=== PATIENT | male | born 1995 | race African-American/Black ===

== ENCOUNTER 2016-10-07 21:46 | Emergency (ER) | payer OTHER ==
[~2016-10-07] VITALS: Ht 185.4 cm; Wt 68.0 kg
[2016-10-07 22:02] VITALS: BP 117/77
--- NOTE | 2016-10-07 23:21 | NUR ---
TO ER OF 2
--- NOTE | 2016-10-07 23:28 | NUR ---
Patient being evaluated by physician at [facility].
[2016-10-07] MEDS ORDERED: IBUPROFEN 800 MG TAB PO ONE (23:30)
[2016-10-07] MEDS ORDERED: oxyCODONE/APAP 5/325 MG 1 TAB TAB PO ONE (23:30)
--- NOTE | 2016-10-07 23:33 | NUR ---
Blaze hanna in [facility] - 10/07/16 at 2340 by [facility] Patient being evaluated by physician at [facility].
[2016-10-08] MEDS ORDERED: LIDOCAINE 1% 500 MG/50 ML VIAL INJ SCH (00:05)
[2016-10-08] MEDS ORDERED: LIDOCAINE 1% ED 50 ML ONE (00:22)
[2016-10-08 00:40] VITALS: BP 107/68
--- NOTE | 2016-10-08 00:40 | NUR ---
Patient discharged with v/s stable. Written and verbal after care instructions given and explained. Patient verbalized understanding. Ambulatory with steady gait. All questions addressed prior to discharge. Advised to follow up with PMD.
[2016-10-08] MEDS ORDERED: BACITRACIN OINT 500 UNITS/GM PKT TP ONE (00:44)
== END 2016-10-08 00:40 | disposition home or self-care (01) ==
LOC: MED 21:46
DX: S61.411A Laceration without foreign body of right hand, initial encounter (principal); W22.01XA Walked into wall, initial encounter; Y93.89 Activity, other specified; Y92.89 Other specified places as the place of occurrence of the external cause; Y99.8 Other external cause status
CPT/HCPCS: 12001; 73130; 99284; J2001

== ENCOUNTER 2016-10-12 08:40 | Emergency (ER) | payer SELFPAY ==
[~2016-10-12] VITALS: Ht 185.4 cm; Wt 63.5 kg
[2016-10-12 08:44] VITALS: BP 114/48
--- NOTE | 2016-10-12 08:44 | NUR ---
PT TAKEN TO BED 6
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
--- NOTE | 2016-10-12 08:45 | NUR ---
Patient being evaluated by DR STARK at bedside.
[2016-10-12] MEDS ORDERED: LEVOFLOXACIN 500 MG/D5W PREMIX 100 ML IV ONE (08:55)
[2016-10-12] MEDS ORDERED: NACL 0.9% 1,000 ML IV SCH (08:56)
[2016-10-12] MEDS ORDERED: ONDANSETRON 4 MG/2 ML VIAL IVP ONE (09:00)
[2016-10-12] MEDS ORDERED: cefTRIAXone 1,000 MG VIAL ONE (09:10)
[2016-10-12 09:13] LABS: BASOPHILS % (AUTO) 0.6 % (0.0-2.0); EOSINOPHILS # (AUTO) 0.1 K/uL (0-0.4); HEMATOCRIT 43.2 % (36-52); HEMOGLOBIN 14.2 g/dL (12.0-18.0); LYMPHOCYTES # (AUTO) 1.3 K/uL (2.0-11.5); LYMPHOCYTES % (AUTO) 18.7 % (20.5-51.1); MEAN CORPUSCULAR HEMOGLOBIN 29 pg (27-31); MEAN CORPUSCULAR HGB CONC 33 g/dL (33-37); MEAN CORPUSCULAR VOLUME 89 fL (80-94); MONOCYTES # (AUTO) 0.4 K/uL (0.8-1.0); MONOCYTES % (AUTO) 5.4 % (1.7-9.3); NEUTROPHILS # (AUTO) 4.9 K/uL (1.8-7.7); NEUTROPHILS % (AUTO) 74.3 % (42.2-75.2); PLATELET COUNT (AUTO) 206 K/uL (140-450); RED BLOOD CELL COUNT(AUTO) 4.88 MIL/uL (4.20-6.10); RED CELL DISTRIBUTION WIDTH 12.6 % (11.6-13.7); WHITE BLOOD COUNT (AUTO) 6.7 K/uL (4.5-11.0)
--- NOTE | 2016-10-12 09:15 | NUR ---
LAB AT BEDSIDE
--- NOTE | 2016-10-12 09:15 | NUR ---
INSERTED IV [id number] LAC; PT TOLERATED PROCEDURE WELL. ADMINISTERED IVF & MEDS ORDER.
[2016-10-12 09:33] LABS: ANION GAP 11.5 (8-16); CARBON DIOXIDE 29.1 mmol/L (21-32); POTASSIUM 3.6 mmol/L (3.5-5.1)
[2016-10-12] MEDS ORDERED: KETOROLAC 30 MG/ML VIAL IVP ONE (09:55)
--- NOTE | 2016-10-12 10:34 | NUR ---
WOUND C/S DONE & SENT SPECIMEN TO LAB. WOUND CARE DONE BY ENRIQUETA SOARES. PT TOLERATED PROCEDURE WELL
--- NOTE | 2016-10-12 11:00 | NUR ---
Blaze hanna in ED - 10/12/16 at 1152 by [facility] WOUND CARE DONE BY ENRIQUETA KAT PT TOLERATED PROCEDURE WELL
[2016-10-12] MEDS ORDERED: NEOMYCIN/POLYMYXIN/BACITRACIN 0.9 GM/1 PKT TP ONE (11:11)
--- NOTE | 2016-10-12 11:34 | NUR ---
IV removed, catheter intact and site benign. Applied folded 4x4 gauze and tape to stop bleeding.
[2016-10-12 11:35] VITALS: BP 118/71
--- NOTE | 2016-10-12 11:35 | NUR ---
Patient discharged with v/s stable. Written and verbal after care instructions given and explained. Patient alert, oriented and verbalized understanding of instructions. Ambulatory with steady gait. All questions addressed prior to discharge. ID band removed. Patient advised to follow up with PMD. Rx of LEVAQUIN & KEFLEX given. Patient educated on indication of medication including possible reaction and side effects. Opportunity to ask questions provided and answered.
[2016-10-12] MEDS ORDERED: BACITRACIN OINT 500 UNITS/GM PKT TP ONE (11:38)
== END 2016-10-12 11:35 | disposition home or self-care (01) ==
LOC: MED 08:40
DX: L03.113 Cellulitis of right upper limb (principal); R11.10 Vomiting, unspecified
CPT/HCPCS: 36415; 80048; 85025; 87070; 87075; 87186; 87205; 96365; 96367; 96375; 99284; J0696; J1885; J1956; J2405; J7030; J7060

== ENCOUNTER 2016-10-15 08:40 | Emergency (ER) | payer MEDICAID ==
[~2016-10-15] VITALS: Ht 185.4 cm; Wt 59.1 kg
[2016-10-15 08:42] VITALS: BP 106/65
--- NOTE | 2016-10-15 08:49 | NUR ---
Patent ambulated to bed 5. RN evaluating patient at bedside.
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
--- NOTE | 2016-10-15 08:59 | NUR ---
Dr. Duran evaluating patient at bedside. Addendum: [facility] 09[facility] BY DR DURAN. PT TOLERATED PROCEDURE WELL.
[2016-10-15] MEDS ORDERED: VANCOMYCIN 1,000 MG in DEXTROSE 5% 250 ML IV ONE (09:00)
--- NOTE | 2016-10-15 09:00 | NUR ---
inserted iv cath 20g LAC .PT TOLERATED PROCEDURE WELL. IV PATENT & INTACT. ADMINISTERED MED ORDER. PAIN R HAND 06/29. Addendum: 10/15/16 at 1050 by [email or web address] WOUND CARE DONE. PT TPLERATED PROCEDURE WELL.
[2016-10-15] MEDS ORDERED: VANCOMYCIN 1,000 MG VIAL ONE (09:10)
--- NOTE | 2016-10-15 09:37 | NUR ---
Dr. Roach reevaluating patient at bedside.
--- NOTE | 2016-10-15 09:40 | NUR ---
Patient appears to be resting comfortably in bed. Vital Signs within normal limits. Respirations even and unlabored.WILL CONTINUE TO MONITOR.
--- NOTE | 2016-10-15 10:10 | NUR ---
Note cadesimeon in EDM - 10/15/16 at 1052 by [facility] Patient discharged with v/s stable. Written and verbal after care instructions given and explained. Patient alert, oriented and verbalized understanding of instructions. Ambulatory with steady gait. All questions addressed prior to discharge. ID band removed. Patient advised to follow up with PMD. Rx of BACTRIM DS & LEVOFLOXACIN given. Patient educated on indication of medication including possible reaction and side effects. Opportunity to ask questions provided and answered.
--- NOTE | 2016-10-15 10:35 | NUR ---
IV removed, catheter intact and site benign. Applied folded 4x4 gauze and tape to stop bleeding.
[2016-10-15 10:40] VITALS: BP 117/64
--- NOTE | 2016-10-15 10:40 | NUR ---
Patient discharged with v/s stable. Written and verbal after care instructions given and explained. Patient alert, oriented and verbalized understanding of instructions. Ambulatory with steady gait. All questions addressed prior to discharge. ID band removed. Patient advised to follow up with PMD. Rx of BACTRIM DS & LEVOFLOXACIN given. Patient educated on indication of medication including possible reaction and side effects. Opportunity to ask questions provided and answered.
== END 2016-10-15 10:40 | disposition home or self-care (01) ==
LOC: MED 08:40
DX: S61.411D Laceration without foreign body of right hand, subsequent encounter (principal); A49.02 Methicillin resistant Staphylococcus aureus infection, unspecified site; L03.113 Cellulitis of right upper limb
CPT/HCPCS: 96365; 99285; J3370; J7060

== ENCOUNTER 2016-10-22 15:01 | Emergency (ER) | payer MEDICAID ==
[~2016-10-22] VITALS: Ht 182.9 cm; Wt 57.3 kg
[2016-10-22 16:00] VITALS: BP 127/71
--- NOTE | 2016-10-22 16:12 | NUR ---
PATIENT AMBULATED TO ER BED 8.
--- NOTE | 2016-10-22 16:14 | NUR ---
DR AWAN EVALUATING AAO PT AT BEDSIDE
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
[2016-10-22 16:58] VITALS: BP 118/67
--- NOTE | 2016-10-22 16:58 | NUR ---
Patient discharged with v/s stable. Written and verbal after care instructions given and explained. Patient alert, oriented and verbalized understanding of instructions. Ambulatory with steady gait. All questions addressed prior to discharge. ID band removed. Patient advised to follow up with PMD. Rx of LEVAQUIN, BACTRIM given. Patient educated on indication of medication including possible reaction and side effects. Opportunity to ask questions provided and answered.
== END 2016-10-22 16:58 | disposition home or self-care (01) ==
LOC: MED 15:01
DX: S61.401A Unspecified open wound of right hand, initial encounter (principal); L03.113 Cellulitis of right upper limb; W22.01XA Walked into wall, initial encounter; Y93.89 Activity, other specified; Y92.89 Other specified places as the place of occurrence of the external cause; Y99.8 Other external cause status
CPT/HCPCS: 99283